=== PATIENT | female | born 1950 | race African-American/Black ===

== ENCOUNTER 2024-02-05 16:20 | Emergency (ER) | payer SELFPAY ==
[2024-02-05 16:27] VITALS: RESP 18; TEMP 97; BMI 32.5
[2024-02-05] MEDS ORDERED: hydrALAZINE HCL 10 MG TABLET ONE (17:52)
[2024-02-05] MEDS: hydrALAZINE HCL 10 MG TABLET PO ONE (18:11)
[2024-02-05 18:33] LABS: BASO % 0.6 % (0-2.0); EOS % 1.3 % (0-4.5); HEMATOCRIT 37.2 % (32.4-45.2); HEMOGLOBIN 11.9 GM/dL (10.7-15.3); LYMPH % 35.9 % (8-40); MCH 27.8 pg (25.7-33.7); MCHC 32.1 g/dl (32.0-36.0); MEAN CELL VOLUME 86.8 fl (80-96); MEAN PLT VOLUME 7.3 fl (7.5-11.1); MONO % 9.8 % (3.8-10.2); NEUT % 52.4 % (42.8-82.8); PLATELET COUNT 219 10^3/uL (134-434); RBC 4.28 M/mm3 (3.60-5.2); RDW 14.1 % (11.6-15.6); WHITE BLOOD COUNT 6.1 K/mm3 (4.0-10.0)
[2024-02-05 18:59] LABS: POTASSIUM 3.6 mmol/L (3.5-5.1)
[2024-02-05 19:01] LABS: ALBUMIN 3.4 g/dl (3.4-5.0); CALCIUM 8.7 mg/dL (8.5-10.1)
[2024-02-05 19:02] LABS: BLOOD UREA NITROGEN 15.4 mg/dL (7-18)
[2024-02-05 19:05] LABS: CREATININE 0.7 mg/dL (0.55-1.3)
[2024-02-05 19:06] LABS: BILIRUBIN,TOTAL 0.4 mg/dL (0.2-1); TOT PROT 6.3 g/dl (6.4-8.2)
[2024-02-05 19:21] VITALS: BP 180/70; PULSE 60
== END 2024-02-05 19:22 | disposition home or self-care (01) ==
LOC: JER 16:20
DX: I10 Essential (primary) hypertension (principal)
CPT/HCPCS: 36415; 80053; 85025; 93005; 93010; 99284-25

== ENCOUNTER 2025-04-10 13:26 | Emergency (ER) | payer OTHER ==
[2025-04-10 13:33] VITALS: BP 154/71; PULSE 82; RESP 20; TEMP 98.1; BMI 32.3
== END 2025-04-10 14:39 | disposition home or self-care (01) ==
LOC: JER 13:26
DX: I10 Essential (primary) hypertension (principal)
CPT/HCPCS: 93005; 93010; 99283-25